=== PATIENT | male | born 1960 | race Caucasian/White ===

== ENCOUNTER 2023-07-23 19:43 | Inpatient (IN) | payer OTHER, SELFPAY ==
[2023-07-23] VITALS (10 sets, daily range): BP systolic 69–107; BP diastolic 53–75; BMI 25.2
--- NOTE | 2023-07-23 15:17 | ED.GENMED ---
History of Present Illness
<Agustín Tadeo PA-C - Last Filed: 07/23/23 18:03>
General
Chief Complaint: Abdominal Symptoms
Source: patient
Time Seen by Provider: 07/23/23 15:03
Travel History
Have you had any contact with someone who has COVID-19?: No
Do you have any symptoms of coronavirus? Fever > 100 degrees, chills, cough, shortness of breath, sore throat, loss of taste or smell, muscle aches, or headache?: No
History of Present Illness
History of Present Illness:
63-year-old male presents via EMS from a hotel where they found him on the floor. Complains of abdominal pain in the midportion of the abdomen. He does admit to regular alcohol use. He was found covered in urine and feces. He denies chest pain
or shortness of breath. No recent fever. He has a prior history of laparoscopic hernia repair. No prior history of cholecystectomy. Pain does not radiate to his back. Its constant. No other complaints at this time
Phy Exam
<Agustín Tadeo PA-C - Last Filed: 07/23/23 18:03>
Physical Exam
Physical Exam:
General: Unkempt appearing male no acute respiratory distress
HEENT: Normocephalic atraumatic
Heart: Regular rate and rhythm
Lungs: Clear to auscultation bilaterally no wheezing
Abdomen:Somewhat firm tender to the epigastric region slightly distended normal bowel sounds no guarding
Extremities: No cyanosis or edema
Skin is warm no rash
Course
<Agustín Tadeo PA-C - Last Filed: 07/23/23 18:03>
Orders/Labs/Results
Orders:
Orders
07/23/23 15:02
IV Insert/Care/Rem.- Treatment PRN
Straight cath- Treatment ONCE
Urinalysis Reflex To Culture Urgent
Date Specimen was Collected: 07/23/23
Time Specimen was Collected: 15:02
07/23/23 15:12
EKG [Electrocardiogram (*1)] Urgent
Reason for Study: Abdominal Pain
07/23/23 15:13
EKG- Treatment ONCE
07/23/23 15:15
CT Abd/pelvis Wo Iv Cont Urgent
Reason For Exam: abdominal pain
Ondansetron Injectable [Zofran] 4 mg IV NOW STA
07/23/23 15:16
Alcohol Urgent
B-Hydroxybutyrate Urgent
Comment: ADD ON
CPK [Creatine Phosphokinase] Urgent
Complete Blood Count/With Diff Urgent
Comprehensive Metabolic Panel Urgent
GGTP Urgent
Comment: ADD ON
Lipase Urgent
Magnesium Urgent
Comment: ADD ON
Troponin I Urgent
07/23/23 15:25
0.9% Sodium Chloride 1000 ml [Nss] 1,000 ml IV BOLUS
07/23/23 15:37
Lactic Acid Q4H
Comment: CANCEL 2nd LACTIC ACID IF 1st LACTIC ACID IS LESS THAN 2
Blood Culture Q30M
NETTE Source: Blood/Venous
Specimen Description:
Blood Culture Q30M
NETTE Source: Blood/Venous
Specimen Description:
07/23/23 16:17
Ondansetron Injectable [Zofran] 4 mg IV NOW STA
Pantoprazole 80 mg/100 ml Nss [Protonix] 80 mg in 100 ml IV NOW
Pantoprazole [Protonix IV] 80 mg IV NOW STA
07/23/23 16:39
Type+Screen Urgent
07/23/23 18:13
Admit/Transfer Patient As Directed
Co-Sign Provider:
Level of Care: Inpatient admission
Assign to:: Telemetry
Physician / Group: hosp
Diagnosis: Acute pancreatitis/hypotension
Reason for Telemetry: Medication for Arrhythmia
Date to Stop Telemetry: 07/25/23
Time to Stop Telemetry: 11:00
Reason for Hospitalization: Acute pancreatitis/MEAGAN
Expected length of stay greater than two midnights?: Yes
ELOS- Estimated Length of Stay in days: 2
I certify the patient meets the requirements for IP care: Yes
07/23/23 18:15
Code Status As Directed
Resuscitation Status: Full Code
07/23/23 18:23
Case Management Consult Once
Case Management Consult: Other
Comment: Substance abuse counseling
DIETARY CONSULT Routine
Reason for Consult: Nutrition support, possible refeeding guidelines
Prothrombin Time Urgent
Urine Drug Abuse Screen Routine
Date Specimen was Collected: 07/23/23
Time Specimen was Collected: 18:26
0.9% Sodium Chloride [Nss (Preservative Free)] See Protocol IV PRN PRN
FOLic ACID [Folvite] 1 mg 0.9% Sodium Chloride 50 ml [Nss] 50 ml IV DAILYPRN
Lorazepam [Ativan] 1 mg IV Q1HPRN PRN
Lorazepam [Ativan] 1 mg PO Q2HPRN PRN
Lorazepam [Ativan] 2 mg IV Q1HPRN PRN
MSAS SCORE As Directed
MSAS Score 0-4: Repeat MSAS every 2 hours until 0-4 for three consecutive assessments, then every 4 hours x 48
hours.
MSAS Score 5-7: For MILD withdrawl symptoms. Repeat MSAS and RASS every 2 hours
MSAS Score 8-11: For MODERATE withdrawal symptoms. Repeat MSAS and RASS every 1 hour. Consider ICU or IMU
level of care.
MSAS Score > 11: For SEVERE withdrawal symptoms. Repeat MSAS and RASS every 1 hour. Notify provider, consider
ICU level of care.
MSAS Additional Instructions: If no improvement or no decrease in score from severe to moderate within 12
hours, consult psychiatry
MSAS Notify Provider: Notify provider if patient requires more than 10 mg of Lorazepam in eight hour period.
07/23/23 18:29
Add On- LAB Urgent
Tests Added?: alcohol,b-hydroxybutyrate,GGTP,magnesium
07/23/23 18:34
Potassium Chloride [KCl] 20 meq 0.9% Sodium Chloride 150 ml [Nss] 150 ml IV NOW
Sodium Bicarbonate 50 meq IV NOW STA
07/23/23 19:30
Lactic Acid Q4H
Comment: CANCEL 2nd LACTIC ACID IF 1st LACTIC ACID IS LESS THAN 2
07/23/23 20:00
Thiamine Injection 200 mg IV Q12
07/24/23 08:00
FOLic ACID [Folvite] 1 mg PO DAILY
07/25/23 11:00
DC Protocol for Telemetry ONCE
07/26/23 20:00
Thiamine HCl [Vitamin B1] 100 mg PO BID
Abnormal Lab Results
07/23/23 07/23/23
15:16 15:37
RBC 3.98 L 10^6/uL
(4.70-6.10)
Hct 36.9 L %
(39.0-52.0)
MCH 34.2 H pg
(27.0-31.0)
Abs Immat Gran (auto) 0.4 H 10^3/uL
(0-0.05)
Absolute Monos (auto) 0.9 H 10^3/uL
(0.1-0.6)
Immature Gran % 4.7 H %
(0-0.5)
Lymphocytes % 16.1 L %
(20.5-51.1)
Monocytes % 11.7 H %
(1.7-9.3)
Sodium 128 L mmol/L
(135-145)
Potassium 3.4 L mmol/L
(3.5-5.1)
Carbon Dioxide 16 L mmol/L
(22-30)
BUN 39 H mg/dl
(9-20)
Creatinine 2.0 H mg/dL
(0.7-1.3)
Glucose 135 H mg/dl
(70-99)
Lactic Acid 4.9 H* mmol/L
(0.7-2.0)
Calcium 8.2 L mg/dl
(8.4-10.2)
Total Bilirubin 1.6 H mg/dl
(0.2-1.3)
AST 69 H U/L
(17-59)
ALT 54 H U/L
(0-50)
Troponin I 0.096 H* ng/ml
Total Protein 5.9 L g/dl
(6.3-8.2)
Lipase 2845 H* U/L
(23-300)
07/23/23 15:16
07/23/23 15:16
Vital Signs
Initial and Last Documented VS:
Initial Vital Signs
Temp Resp Pulse Ox
97.4 F 19 94
07/23/23 15:04 07/23/23 15:04 07/23/23 15:04
Last Documented Vital Signs
Temp Pulse Resp BP Pulse Ox
97.4 F 97 12 107/65 94
07/23/23 15:04 07/23/23 18:08 07/23/23 16:45 07/23/23 16:02 07/23/23 15:04
<Maryana Williamson MD - Last Filed: 07/23/23 19:14>
Orders/Labs/Results
Orders:
Orders
07/23/23 15:02
IV Insert/Care/Rem.- Treatment PRN
Straight cath- Treatment ONCE
Urinalysis Reflex To Culture Urgent
Date Specimen was Collected: 07/23/23
Time Specimen was Collected: 15:02
07/23/23 15:12
EKG [Electrocardiogram (*1)] Urgent
Reason for Study: Abdominal Pain
07/23/23 15:13
EKG- Treatment ONCE
07/23/23 15:15
CT Abd/pelvis Wo Iv Cont Urgent
Reason For Exam: abdominal pain
Ondansetron Injectable [Zofran] 4 mg IV NOW STA
07/23/23 15:16
Alcohol Urgent
B-Hydroxybutyrate Urgent
Comment: ADD ON
CPK [Creatine Phosphokinase] Urgent
Complete Blood Count/With Diff Urgent
Comprehensive Metabolic Panel Urgent
GGTP Urgent
Comment: ADD ON
Lipase Urgent
Magnesium Urgent
Comment: ADD ON
Troponin I Urgent
07/23/23 15:25
0.9% Sodium Chloride 1000 ml [Nss] 1,000 ml IV BOLUS
07/23/23 15:37
Lactic Acid Q4H
Comment: CANCEL 2nd LACTIC ACID IF 1st LACTIC ACID IS LESS THAN 2
Blood Culture Q30M
NETTE Source: Blood/Venous
Specimen Description:
Blood Culture Q30M
NETTE Source: Blood/Venous
Specimen Description:
07/23/23 16:17
Ondansetron Injectable [Zofran] 4 mg IV NOW STA
Pantoprazole 80 mg/100 ml Nss [Protonix] 80 mg in 100 ml IV NOW
Pantoprazole [Protonix IV] 80 mg IV NOW STA
07/23/23 16:39
Type+Screen Urgent
07/23/23 18:13
Admit/Transfer Patient As Directed
Co-Sign Provider:
Level of Care: Inpatient admission
Assign to:: Telemetry
Physician / Group: hosp
Diagnosis: Acute pancreatitis/hypotension
Reason for Telemetry: Medication for Arrhythmia
Date to Stop Telemetry: 07/25/23
Time to Stop Telemetry: 11:00
Reason for Hospitalization: Acute pancreatitis/MEAGAN
Expected length of stay greater than two midnights?: Yes
ELOS- Estimated Length of Stay in days: 2
I certify the patient meets the requirements for IP care: Yes
07/23/23 18:15
Code Status As Directed
Resuscitation Status: Full Code
07/23/23 18:23
Case Management Consult Once
Case Management Consult: Other
Comment: Substance abuse counseling
DIETARY CONSULT Routine
Reason for Consult: Nutrition support, possible refeeding guidelines
Prothrombin Time Urgent
Urine Drug Abuse Screen Routine
Date Specimen was Collected: 07/23/23
Time Specimen was Collected: 18:26
0.9% Sodium Chloride [Nss (Preservative Free)] See Protocol IV PRN PRN
FOLic ACID [Folvite] 1 mg 0.9% Sodium Chloride 50 ml [Nss] 50 ml IV DAILYPRN
Lorazepam [Ativan] 1 mg IV Q1HPRN PRN
Lorazepam [Ativan] 1 mg PO Q2HPRN PRN
Lorazepam [Ativan] 2 mg IV Q1HPRN PRN
MSAS SCORE As Directed
MSAS Score 0-4: Repeat MSAS every 2 hours until 0-4 for three consecutive assessments, then every 4 hours x 48
hours.
MSAS Score 5-7: For MILD withdrawl symptoms. Repeat MSAS and RASS every 2 hours
MSAS Score 8-11: For MODERATE withdrawal symptoms. Repeat MSAS and RASS every 1 hour. Consider ICU or IMU
level of care.
MSAS Score > 11: For SEVERE withdrawal symptoms. Repeat MSAS and RASS every 1 hour. Notify provider, consider
ICU level of care.
MSAS Additional Instructions: If no improvement or no decrease in score from severe to moderate within 12
hours, consult psychiatry
MSAS Notify Provider: Notify provider if patient requires more than 10 mg of Lorazepam in eight hour period.
07/23/23 18:29
Add On- LAB Urgent
Tests Added?: alcohol,b-hydroxybutyrate,GGTP,magnesium
07/23/23 18:34
Potassium Chloride [KCl] 20 meq 0.9% Sodium Chloride 150 ml [Nss] 150 ml IV NOW
Sodium Bicarbonate 50 meq IV NOW STA
07/23/23 19:30
Lactic Acid Q4H
Comment: CANCEL 2nd LACTIC ACID IF 1st LACTIC ACID IS LESS THAN 2
07/23/23 20:00
Thiamine Injection 200 mg IV Q12
07/24/23 08:00
FOLic ACID [Folvite] 1 mg PO DAILY
07/25/23 11:00
DC Protocol for Telemetry ONCE
07/26/23 20:00
Thiamine HCl [Vitamin B1] 100 mg PO BID
Abnormal Lab Results
07/23/23 07/23/23
15:16 15:37
RBC 3.98 L 10^6/uL
(4.70-6.10)
Hct 36.9 L %
(39.0-52.0)
MCH 34.2 H pg
(27.0-31.0)
Abs Immat Gran (auto) 0.4 H 10^3/uL
(0-0.05)
Absolute Monos (auto) 0.9 H 10^3/uL
(0.1-0.6)
Immature Gran % 4.7 H %
(0-0.5)
Lymphocytes % 16.1 L %
(20.5-51.1)
Monocytes % 11.7 H %
(1.7-9.3)
Sodium 128 L mmol/L
(135-145)
Potassium 3.4 L mmol/L
(3.5-5.1)
Carbon Dioxide 16 L mmol/L
(22-30)
BUN 39 H mg/dl
(9-20)
Creatinine 2.0 H mg/dL
(0.7-1.3)
Glucose 135 H mg/dl
(70-99)
Lactic Acid 4.9 H* mmol/L
(0.7-2.0)
Calcium 8.2 L mg/dl
(8.4-10.2)
Total Bilirubin 1.6 H mg/dl
(0.2-1.3)
AST 69 H U/L
(17-59)
ALT 54 H U/L
(0-50)
Troponin I 0.096 H* ng/ml
Total Protein 5.9 L g/dl
(6.3-8.2)
Lipase 2845 H* U/L
(23-300)
07/23/23 15:16
07/23/23 15:16
Vital Signs
Initial and Last Documented VS:
Initial Vital Signs
Temp Resp Pulse Ox
97.4 F 19 94
07/23/23 15:04 07/23/23 15:04 07/23/23 15:04
Last Documented Vital Signs
Temp Pulse Resp BP Pulse Ox
97.4 F 97 12 107/65 94
07/23/23 15:04 07/23/23 18:08 07/23/23 16:45 07/23/23 16:02 07/23/23 15:04
<Agustín Tadeo PA-C - Last Filed: 07/23/23 18:03>
MDM/Problems Addressed
Differential Diagnosis Includes:
Abdominal pain with recent vomiting. Consider viral illness vs pancreatitis is cholecystitis or obstruction.
Check labs, lipase, trop. CT pending given tenderness.
<Agustín Tadeo PA-C - Last Filed: 07/23/23 18:03>
*Critical Care Note
Total Time (30-74mins, 75-104mins- exclusive of procedures): Not Applicable
<Agustín Tadeo PA-C - Last Filed: 07/23/23 18:03>
Update Note
Update Note:
Patient hypotensive initially was aggressively hydrated with IV fluids. This was helpful for his blood pressure. Blood pressure now systolic 107. He remained alert throughout his stay. Abdomen was tender on exam which prompted CT. Unable to
perform IV contrast secondary to kidney functions today. CT scan was overall negative. Lipase was 2845 and lactic acid was 4.9. Will admit for acute pancreatitis
ED Attending Note
<Agustín Tadeo PA-C - Last Filed: 07/23/23 18:03>
-
Portions of this chart may have been created with voice recognition software.� Occasional wrong word or��sound alike� substitutions may have occurred due to the inherent limitations of voice recognition software.
<Maryana Williamson MD - Last Filed: 07/23/23 19:14>
ED Attending Note
Patient seen and examined by attending physician: Yes
ED Attending Note:
63-year-old male who states that he got into an argument with his girlfriend and was 'kicked out' of his house, went to a hotel and has been drinking heavily up until approximately 3 days ago. At that time, he developed multiple episodes of
intractable nonbloody vomiting and diarrhea. His girlfriend brought him his medications today and upon taking the medicine he had A bottle of Gatorade and thought he was getting better, but this was followed by repeated episodes of nonbloody
vomiting. He describes intense fatigue and difficulty making it to the toilet because of this fatigue. He reportedly was found in a hotel laying down covered in urine and feces. He states that after having the Gatorade he developed right upper
quadrant/epigastric abdominal discomfort which continues. This is without radiation, exacerbating, relieving factors. He denies associated back pain, chest pain, dyspnea. On exam, IV fluids are running, hypotension has improved remarkably,
patient awake and alert. He has diffuse abdominal tenderness without rebound or guarding, mild distention noted. Heart regular rate and rhythm, lungs CTA. No stigmata of bleeding noted, conjunctiva pink. Workup in progress, adding PPI, further
antiemetics while awaiting further results. Although troponin indiscriminately elevated, ECG not consistent with acute cardiac event and patient denies chest pain etc.
Discharge Plan
Departure
Patient Disposition: Admit
Date of Disposition: 07/23/23
Time of Disposition: 18:02
Admit to: IMU
Presentation/result/management discussed w/ accepting MD/DO: Hospitalist
Discharge Problem:
Acute pancreatitis
Prescriptions:
No Action
lisinopril 10 mg Tablet
10 mg PO DAILY
tizanidine 4 mg Capsule
4 mg PO Q8H PRN (Reason: muscle spasms)
omeprazole 40 mg capsule,delayed release(DR/EC)
40 mg PO DAILY
Referrals:
Jose Antonio Ann DO [Family Provider] -
Interventions
Interventions:
*Risk Screen - Suicide Last Done: 07/23/23 15:56
*General Assessment Last Done: 07/23/23 15:04
*Neglect/Abuse Screening Last Done: 07/23/23 15:04
ED- Fall Risk Assessment Last Done: 07/23/23 15:11
MR-Rnqdve-Krnmzlejce Assessment Last Done: 07/23/23 15:11
Discharge Date and Time
Print Language: VENEZUELAN
[2023-07-23] MEDS: ZOFRAN 4 MG IV ×2 (15:20→16:59)
[2023-07-23] MEDS: NSS 1000 IV ×2 (15:35→22:39)
[2023-07-23 15:48] LABS: ALT (SGPT) 54 U/L (0-50); AST (SGOT) 69 U/L (17-59); Albumin 3.7 g/dl (3.5-5.0); Alkaline Phosphatase 62 U/L (38-126); Blood Urea Nitrogen 39 mg/dl (9-20); Calcium 8.2 mg/dl (8.4-10.2); Carbon Dioxide 16 mmol/L (22-30); Chloride 99 mmol/L (98-107); Creatine Phosphokinase 84 U/L (55-170); Estimated Creatinine Clearance 43 ml/min; Glucose 135 mg/dl (70-99); Potassium 3.4 mmol/L (3.5-5.1); Sodium 128 mmol/L (135-145); Total Bilirubin 1.6 mg/dl (0.2-1.3); Total Protein 5.9 g/dl (6.3-8.2); eGFR 37.04
[2023-07-23 16:01] LABS: % Basophils 0.9 % (0-2); % Eosinophils 0.3 % (0-6); % Immature Granulocytes 4.7 % (0-0.5); % Lymphocytes 16.1 % (20.5-51.1); % Monocytes 11.7 % (1.7-9.3); % Neutrophils 66.3 % (42.2-75.2); Absolute Basophils 0.1 10^3/uL (0-0.2); Absolute Immature Granulocytes 0.4 10^3/uL (0-0.05); Absolute Lymphocytes 1.2 10^3/uL (1.2-3.4); Absolute Monocytes 0.9 10^3/uL (0.1-0.6); Absolute Neutrophils 5.1 10^3/uL (1.4-6.5); Hematocrit 36.9 % (39.0-52.0); Hemoglobin 13.6 g/dL (13.0-18.0); Mean Corp Hgb Conc. 36.9 g/dL (33.0-37.0); Mean Corpuscular Hgb 34.2 pg (27.0-31.0); Mean Corpuscular Volume 92.7 fL (80.0-94.0); Mean Platelet Volume 9.8 fL (7.4-10.4); Nucleated Red Blood Cells % 0.9 % (-); Platelet Count 179 10^3/uL (130-400); Red Blood Cell Count 3.98 10^6/uL (4.70-6.10); Red Cell Dist. Width 11.7 % (11.5-14.5); White Blood Cell Count 7.7 10^3/uL (4.8-10.8)
[2023-07-23 16:03] LABS: Troponin I 0.096 ng/ml
[2023-07-23] MEDS: PROTONIX 100 IV (16:29)
[2023-07-23] MEDS: PROTONIX IV 80 MG IV (16:29)
[2023-07-23 16:33] LABS: Lactic Acid 4.9 mmol/L (0.7-2.0)
[2023-07-23 16:33] LABS: Lipase 2845 U/L (23-300)
--- NOTE | 2023-07-23 18:24 | HPS.HSE ---
Family Physician
-
Family Physician: Jose Antonio Ann
Chief Complaint
-
Home by paramedics on the floor complaining of abdominal pain covered with feces and urine
History of Present Illness
63-year-old male presents via EMS from a hotel where they found him on the floor. Complains of abdominal pain in the midportion of the abdomen. He does admit to regular alcohol use. He was found covered in urine and feces. He denies chest pain
or shortness of breath. No recent fever. He has a prior history of laparoscopic hernia repair. No prior history of cholecystectomy. Pain does not radiate to his back. Its constant. No other complaints at this time
He relates he just started drinking again this past week and when asked quantities he states 'I drink a lot of alcohol' had some drinking for some time until this week. Her last drink was 2 days ago however but has been having some ongoing
abdominal pain but became much worse today.
Phy Exam
Medical History
Past Medical History
Past Medical History: Reports GERD (May have been diagnosed with gastroesophageal reflux and esophagitis by EGD sometime ago.) and Renal Failure
Past Surgical History: Reports None
Social History
Tobacco: Smoker (Half pack a day)
Alcohol: Chronic Alcoholic
Drug: None
Personal: Single
Living: Alone
Family History
Family History: Not pertinent
Allergies / Home Medications
Allergies reflects when Allergies were last updated in [employer].
Home Medications with original date entered in [employer]
Allergy/Medication List:
Allergies
Allergy/AdvReac Type Severity Reaction Status Date / Time
No Known Allergies Allergy Verified 08/04/22 10:37
Home Medications
lisinopril 10 mg tablet 10 mg PO DAILY 08/01/22
tizanidine 4 mg capsule 4 mg PO Q8H PRN muscle spasms 08/01/22
omeprazole 40 mg capsule,delayed release 40 mg PO DAILY 07/23/23
Review of Systems
-
History Source: Patient
Constitutional: Reports See HPI
EENT: Reports See HPI
Respiratory: Reports See HPI
Cardiac: Reports See HPI
Abdomen/GI: Reports Abdominal Pain, Nausea, Vomiting and Pain
: Reports See HPI
Physical Exam
Vital Signs
Vital Signs
Temp Pulse Resp BP Pulse Ox
97.4 F 97 12 107/65 94
07/23/23 15:04 07/23/23 18:08 07/23/23 16:45 07/23/23 16:02 07/23/23 15:04
Physical Exam
General: No Apparent Distress
HEENT: NormoCephalic
Respiratory: Clear
Cardiac: S1/S2 and Regular Rhythm
GI: Soft and Tender (Midepigastric does not radiate to back)
Psych: Calm
Laboratory Results
-
07/23/23 15:16
07/23/23 15:16
Laboratory Results
Lactic Acid 4.9 mmol/L (0.7-2.0) H* 07/23/23 15:37
Total Bilirubin 1.6 mg/dl (0.2-1.3) H 07/23/23 15:16
AST 69 U/L (17-59) H 07/23/23 15:16
ALT 54 U/L (0-50) H 07/23/23 15:16
Alkaline Phosphatase 62 U/L (38-126) 07/23/23 15:16
Troponin I 0.096 ng/ml H* 07/23/23 15:16
Lipase 2845 U/L (23-300) H* 07/23/23 15:16
Data Reviewed
-
Critical Care Time (in minutes): 56
CT Scan: Image Personally Visualized and interpreted and Report Reviewed by me (No evidence of pancreatitis on CT imaging)
Lab Data: Labs Reviewed by me (Creatinine 2.0/lipase 2500/lactic acid 4.9/sodium 128 potassium 3.4 BUN 39/bicarb 16 no gap)
Impression/Plan
-
IMPRESSION:
63-year-old male presents via EMS from a hotel where they found him on the floor. Complains of abdominal pain in the midportion of the abdomen. He does admit to regular alcohol use. He was found covered in urine and feces. He denies chest pain
or shortness of breath. No recent fever. He has a prior history of laparoscopic hernia repair. No prior history of cholecystectomy. Pain does not radiate to his back. Its constant. No other complaints at this time
He relates he just started drinking again this past week and when asked quantities he states 'I drink a lot of alcohol' had some drinking for some time until this week. Her last drink was 2 days ago however but has been having some ongoing
abdominal pain but became much worse today.
Denies any prior history of pancreatitis or similar presentation does admit to being a chronic alcoholic and binge drinker of late
Acute presentation of hypotension
-Responded to IV fluids in the ED
Acute pancreatitis
-Binge drinker in the setting of alcohol use disorder
-CT of the abdomen unremarkable for acute pancreatitis however lipase 2845
-Keep n.p.o.
-Alcoholic hepatitis with LFT elevation
-Analgesia with hydromorphone/avoid morphine in setting of MEAGAN
-MSAS protocol/if history is accurate should not have significant withdrawal presentation given last drink
-Follow on telemetry
Acute kidney injury
-Presumed in relation to low volume state
-Vigorous IV fluids
-Bicarb infusion tonight
-Nongap acidosis
-If no significant response with IV fluids overnight will consult nephrology
-Hold lisinopril
Acute troponin elevation
-Presumed to be nonischemic origin
Lactic acidosis
-Continue vigorous IV fluids and trend
DVT prophylaxis with heparin and SCDs
Full CODE STATUS
PLAN:
[2023-07-23 19:06] LABS: Alcohol None Detected; GGTP 64 U/L (15-73); Magnesium 1.8 mg/dl (1.6-2.3)
[2023-07-23 19:16] LABS: B-Hydroxybutyrate 0.37 mmol/L (0.02-0.27)
[2023-07-23] MEDS: SODIUM BICARBONATE 50 MEQ IV (19:54)
[2023-07-23] MEDS: KCL 160 MEQ IV (19:54)
[2023-07-23] MEDS: HEPARIN SC (22:02)
[2023-07-23] MEDS: THIAMINE INJECTION 200 MG IV (22:05)
[2023-07-23 22:52] LABS: INR 1.17; PT 14.7 Sec (11.4-14.6)
[2023-07-24] VITALS (20 sets, daily range): BP systolic 79–138; BP diastolic 46–90; BMI 25.8
[2023-07-24 02:30] LABS: Urine Albumin Trace (Neg - Trace); Urine Bilirubin Negative (Negative); Urine Character Clear (Clear); Urine Color Yellow; Urine Glucose Negative (Negative); Urine Ketone 1+ (Negative); Urine Leukocyte Negative (Negative); Urine Nitrite Negative (Negative); Urine Occult Blood 1+ (Negative); Urine Urobilinogen Negative (Neg - 1+)
[2023-07-24 03:31] LABS: Urine Amorphous Seen; Urine Squamous Cell >30 /LPF (Few)
[2023-07-24 03:32] LABS: Urine Mucus Moderate
[2023-07-24 03:33] LABS: Urine Bacteria Many (Negative)
[2023-07-24 03:35] LABS: Amphetamines Negative (Negative); Barbiturates Negative (Negative); Benzodiazepines Negative (Negative); Buprenorphine Negative (Negative); Cocaine Negative (Negative); Marijuana Negative (Negative); Methadone Negative (Negative); Methamphetamines Negative (Negative); Opiates Negative (Negative); Phencyclidine Negative (Negative); Tricyclic Antidepressants Negative (Negative)
[2023-07-24] MEDS: LR 500 IV (05:16)
[2023-07-24] MEDS: NSS 1000 IV ×3 (05:48→18:20)
[2023-07-24 07:40] LABS: Hematocrit 32.3 % (39.0-52.0); Hemoglobin 11.7 g/dL (13.0-18.0); Mean Corp Hgb Conc. 36.2 g/dL (33.0-37.0); Mean Corpuscular Volume 93.9 fL (80.0-94.0); Mean Platelet Volume 9.7 fL (7.4-10.4); Platelet Count 137 10^3/uL (130-400); Red Blood Cell Count 3.44 10^6/uL (4.70-6.10); Red Cell Dist. Width 11.8 % (11.5-14.5)
[2023-07-24 07:49] LABS: ALT (SGPT) 60 U/L (0-50); AST (SGOT) 75 U/L (17-59); Albumin 2.8 g/dl (3.5-5.0); Alkaline Phosphatase 59 U/L (38-126); Blood Urea Nitrogen 37 mg/dl (9-20); Calcium 7.5 mg/dl (8.4-10.2); Carbon Dioxide 21 mmol/L (22-30); Chloride 106 mmol/L (98-107); Estimated Creatinine Clearance 51 ml/min; Glucose 87 mg/dl (70-99); Potassium 3.3 mmol/L (3.5-5.1); Sodium 129 mmol/L (135-145); Total Bilirubin 1.4 mg/dl (0.2-1.3); Total Protein 4.9 g/dl (6.3-8.2); eGFR 45.02
[2023-07-24 08:14] LABS: Lipase 2705 U/L (23-300)
[2023-07-24] MEDS: HEPARIN 5000 UNITS SC ×2 (10:13→21:47)
[2023-07-24] MEDS: KCL 160 MEQ IV (10:13)
[2023-07-24] MEDS: THIAMINE INJECTION 200 MG IV ×2 (10:14→21:59)
[2023-07-24] MEDS: PROTONIX IV 40 MG IV (10:14)
[2023-07-24] MEDS: NSS (PRESERVATIVE FREE) 10 ML IV (10:14)
--- NOTE | 2023-07-24 11:57 | W.PN.HOSP.TC ---
Today's Communication/Plan
-
Will place on clear liquids today
Continue vigorous IV fluids
Trend lipase
Monitor for withdrawal but appears none coming
Will try to minimize narcotic analgesia at this point
Assessment / Plan
Assessment / Plan
63-year-old male presents via EMS from a hotel where they found him on the floor. Complains of abdominal pain in the midportion of the abdomen. He does admit to regular alcohol use. He was found covered in urine and feces. He denies chest pain
or shortness of breath. No recent fever. He has a prior history of laparoscopic hernia repair. No prior history of cholecystectomy. Pain does not radiate to his back. Its constant. No other complaints at this time
He relates he just started drinking again this past week and when asked quantities he states 'I drink a lot of alcohol' had some drinking for some time until this week. Her last drink was 2 days ago however but has been having some ongoing
abdominal pain but became much worse today.
Denies any prior history of pancreatitis or similar presentation does admit to being a chronic alcoholic and binge drinker of late
Acute presentation of hypotension
-Responded to IV fluids in the ED
-Will continue to hold lisinopril as BP still soft
-Continue IV fluids
Acute pancreatitis
-Binge drinker in the setting of alcohol use disorder
-CT of the abdomen unremarkable for acute pancreatitis however lipase 2845>> 2700
-Keep n.p.o.>> clear liquids
Alcoholic hepatitis with LFT elevation
-Analgesia with hydromorphone/avoid morphine in setting of MEAGAN
-MSAS protocol/if history is accurate should not have significant withdrawal presentation given last drink
-Follow on telemetry
Acute kidney injury
-Presumed in relation to low volume state
-Vigorous IV fluids to be continued
-Bicarb infusion can be discontinued
-Nongap acidosis
-If no significant response with IV fluids overnight will consult nephrology
-Hold lisinopril
Inappropriate prednisone use
-Uses as needed not prescribed by physician gets from friends
-Admits to as much is taking 40 mg sometimes daily sometimes will take lower dosages last intake was over 2 weeks ago however
Acute troponin elevation
-Presumed to be nonischemic origin
Lactic acidosis/resolved
-Continue vigorous IV fluids and trend
DVT prophylaxis with heparin and SCDs
Full CODE STATUS
Anticipated Discharge: 24 - 48 hours
Subjective/Interval History
-
Date of Service: July 24, 2023
Patient is feeling significant better as far as level abdominal pain no emesis no diarrheal stooling still low BP
Objective Data
-
Labs:
Laboratory Results
07/24/23
06:54
WBC 4.0 L
Hgb 11.7 L
Hct 32.3 L
Plt Count 137 D
Sodium 129 L
Potassium 3.3 L
Chloride 106
Carbon Dioxide 21 L
BUN 37 H
Creatinine 1.7 H
Glucose 87
Calcium 7.5 L
Total Bilirubin 1.4 H
AST 75 H
ALT 60 H
Alkaline Phosphatase 59
Vital Signs:
Vital Signs
Temp Pulse Resp BP Pulse Ox
99.0 F 81 16 104/70 98
07/23/23 23:55 07/24/23 11:00 07/24/23 11:00 07/24/23 11:00 07/24/23 09:00
I&O
07/23/23 07/24/23 07/25/23
06:59 06:59 06:59
Output Total 400 / 400
Balance -400 / -400
Review of Systems
-
History Source: Patient
All other systems: Not reviewed unless documented
Constitutional: Reports No Symptoms
EENT: Reports No Symptoms Reported
Respiratory: Reports No Symptoms
Cardiac: Reports No Symptoms
Abdomen/GI: Reports Abdominal Pain (Greatly improved)
Physical Exam
-
General: Well Developed
HEENT: Normocephalic
Respiratory: Clear to Auscultation
Cardiac: Regular Rhythm
GI: Soft and Nontender
Genito-urinary: Clear Urine
Skin: Warm
Neuro: Awake
Psych: Intact Judgement/Insight and Other (No withdrawal symptoms or signs)
Data Reviewed
-
Total Time Spent with Patient (in minutes): 56
Labs: Labs Reviewed by me (Sodium up to 129 potassium down to 3.3 bicarb up to 21 lactic acid now normalized from 5.9)
--- NOTE | 2023-07-24 12:09 | CM ---
CM met with patient in room. Patient confirmed that he recently has an argument with his girlfriend and he left the home they were sharing. He stated that he then stayed at a hotel. Patient stated that he has been sober for 5 years, but recently
relapsed. He stated that he will 'never drink again'. CM offered [facility]. Patient is refusing meet with [facility].
Patient has been in 4 rehabs for alcohol misuse and he feels that he would not benefit from it at this time.
CM discussed housing options as patient is currently homeless. CM stated that we can assist with a hotel room through [facility] or provide transportation assistance to a residential. Patient stated that he is going to call a friend to see if they can assist
with housing. Patient further stated that he has no financial resources.
CM encouraged patient to pursue housing options for discharge.
Patient does not have a history of VN or SNF.
[2023-07-24] MEDS: FOLVITE 50.2000000000000028 MG IV (13:45)
[2023-07-24] MEDS: FOLVITE PO (13:45)
[2023-07-24] MEDS: NSS IV (13:49)
[2023-07-24 14:26] LABS: Hepatitis C Antibody Negative (Negative)
[2023-07-24] MEDS: ZOFRAN 4 MG IV (17:11)
[2023-07-25] MEDS: NSS 1000 IV ×5 (00:46→22:21)
[2023-07-25 03:43] VITALS: BP 106/60
[2023-07-25 07:25] VITALS: BP 110/60
[2023-07-25] MEDS: HEPARIN 5000 UNITS SC ×2 (08:34→20:14)
[2023-07-25] MEDS: NSS (PRESERVATIVE FREE) 10 ML IV (08:35)
[2023-07-25] MEDS: FOLVITE 1 MG PO (08:35)
[2023-07-25] MEDS: PROTONIX IV 40 MG IV (08:38)
[2023-07-25] MEDS: THIAMINE INJECTION 200 MG IV ×2 (08:38→20:15)
[2023-07-25 09:08] LABS: ALT (SGPT) 77 U/L (0-50); AST (SGOT) 83 U/L (17-59); Albumin 2.6 g/dl (3.5-5.0); Alkaline Phosphatase 57 U/L (38-126); Blood Urea Nitrogen 17 mg/dl (9-20); Calcium 7.6 mg/dl (8.4-10.2); Carbon Dioxide 19 mmol/L (22-30); Chloride 108 mmol/L (98-107); Estimated Creatinine Clearance 79 ml/min; Glucose 87 mg/dl (70-99); Magnesium 1.3 mg/dl (1.6-2.3); Phosphorus 1.4 mg/dl (2.5-4.5); Sodium 135 mmol/L (135-145); Total Bilirubin 0.8 mg/dl (0.2-1.3); Total Protein 4.5 g/dl (6.3-8.2); eGFR > 60.00
--- NOTE | 2023-07-25 10:27 | PN.CDI ---
CDI
- -
CDI:
Physician Documentation Request
Admit Date: 07/23/23 19:43
Dear Doctor Kristin,
Please review the following and provide your response in the progress notes.
Clinical Indicators:
- 4/2 PN 'Acute troponin elevation...Presumed to be nonischemic origin'
- Abnormal troponin level 0.096
Please clarify the following regarding the documented elevated troponins:
Non-ischemic myocardial injury
Clinically insignificant abnormal lab value
Other
Use of terms such as suspected, likely, concern for, or probable (associated with a specific diagnosis that is being evaluated, monitored, or treated as if it exists) are acceptable and can be coded in the inpatient setting, when documented at the
time of discharge.
Thank you,
Stan Reis RN
CDI Specialist
Please use your independent medical judgment in providing your response.
--- NOTE | 2023-07-25 10:35 | PN.CDI ---
CDI
- -
CDI:
Physician Documentation Request
Admit Date: 07/23/23 19:43
Dear Doctor Kristin,
Please review the following and provide your response in the progress notes.
Clinical Indicators:
- 20 meq IV Kcl given x2
Laboratory Tests
07/23/23 07/24/23 07/25/23
15:16 06:54 06:29
Potassium 3.4 L 3.3 L 3.0 L
Please provide a diagnosis for the above lab values that were monitored and treatment rendered:
Hypokalemia
Clinically insignificant abnormal lab value
Other
Use of terms such as suspected, likely, concern for, or probable (associated with a specific diagnosis that is being evaluated, monitored, or treated as if it exists) are acceptable and can be coded in the inpatient setting, when documented at the
time of discharge.
Thank you,
Stan Reis RN
CDI Specialist
Please use your independent medical judgment in providing your response.
[2023-07-25 11:05] LABS: Lipase 2064 U/L (23-300)
[2023-07-25] MEDS: KCL 270 MEQ IV (11:05)
[2023-07-25] MEDS: MAGNESIUM SULFATE 50 IV (11:06)
[2023-07-25 11:10] VITALS: BP 119/76
--- NOTE | 2023-07-25 11:31 | W.PN.HOSP.TC ---
Addendum entered and electronically signed by Angus Foster MD 07/25/23 12:35:
Acute hypokalemia
Nonischemic myocardial injury
Original Note:
Today's Communication/Plan
-
Reduce IV fluids to 150 cc/h
Replete potassium, magnesium, and phosphorus
Continue to monitor lipase
No significant withdrawal signs or symptoms seen
Assessment / Plan
Assessment / Plan
63-year-old male presents via EMS from a hotel where they found him on the floor. Complains of abdominal pain in the midportion of the abdomen. He does admit to regular alcohol use. He was found covered in urine and feces. He denies chest pain
or shortness of breath. No recent fever. He has a prior history of laparoscopic hernia repair. No prior history of cholecystectomy. Pain does not radiate to his back. Its constant. No other complaints at this time
He relates he just started drinking again this past week and when asked quantities he states 'I drink a lot of alcohol' had some drinking for some time until this week. Her last drink was 2 days ago however but has been having some ongoing
abdominal pain but became much worse today.
Denies any prior history of pancreatitis or similar presentation does admit to being a chronic alcoholic and binge drinker of late
Acute presentation of hypotension
-Responded to IV fluids in the ED
-Will continue to hold lisinopril as BP still soft
-Continue IV fluids
Acute pancreatitis
-Binge drinker in the setting of alcohol use disorder
-CT of the abdomen unremarkable for acute pancreatitis however lipase 2845>> 2700
-Keep n.p.o.>> clear liquids>> fulls
Alcoholic hepatitis with LFT elevation
-Analgesia with hydromorphone/avoid morphine in setting of MEAGAN
-MSAS protocol/if history is accurate should not have significant withdrawal presentation given last drink
-Follow on telemetry
Refeeding syndrome
-Magnesium potassium and phosphorus all depressed
-Will replete in the next 2 to 3 days
-Continue to monitor
Acute kidney injury/resolved
-Presumed in relation to low volume state
-Vigorous IV fluids to be continued
-Bicarb infusion can be discontinued
-Nongap acidosis
-If no significant response with IV fluids overnight will consult nephrology
-Hold lisinopril
Inappropriate prednisone use
-Uses as needed not prescribed by physician gets from friends
-Admits to as much is taking 40 mg sometimes daily sometimes will take lower dosages last intake was over 2 weeks ago however
Acute troponin elevation
-Presumed to be nonischemic origin
Lactic acidosis/resolved
-Continue vigorous IV fluids and trend
DVT prophylaxis with heparin and SCDs
Full CODE STATUS
Anticipated Discharge: Within 24 hours
Subjective/Interval History
-
Date of Service: July 25, 2023
Feels weak and shaky tolerating clear liquids some abdominal pain still but less
Objective Data
-
Labs:
Laboratory Results
07/25/23
06:29
Sodium 135
Potassium 3.0 L
Chloride 108 H
Carbon Dioxide 19 L
BUN 17
Creatinine 1.1
Glucose 87
Calcium 7.6 L
Total Bilirubin 0.8
AST 83 H
ALT 77 H
Alkaline Phosphatase 57
Vital Signs:
Vital Signs
Temp Pulse Resp BP Pulse Ox
98.3 F 80 20 110/60 97
07/25/23 07:25 07/25/23 07:25 07/25/23 07:25 07/25/23 07:25 07/25/23 07:25
I&O
07/24/23 07/25/23 07/26/23
06:59 06:59 06:59
Intake Total 1480 / 1480
Output Total 400 / 400 2225 / 2225
Balance -400 / -400 -745 / -745
Review of Systems
-
History Source: Patient
EENT: Reports No Symptoms Reported
Respiratory: Reports No Symptoms
Cardiac: Reports No Symptoms
Abdomen/GI: Reports Abdominal Pain
Genitourinary: Reports No Symptoms
Physical Exam
-
General: Well Developed
HEENT: Normocephalic
Respiratory: Clear to Auscultation
GI: Soft, Nondistended and Tender (Epigastric)
Musculoskeletal: No Edema
Skin: Warm
Neuro: Awake and Alert
Data Reviewed
-
Total Time Spent with Patient (in minutes): 56
Medical Tests (Nuc Med, Echo etc): Report Reviewed by me
Labs: Labs Reviewed by me (Magnesium and phosphorus depressed potassium depressed to 3.0)
--- NOTE | 2023-07-25 11:58 | CM ---
Addendum entered by Yulissa Sinclair 07/25/23 14:14:
CM spoke with Gordon from [facility], patient agreeable to inpatient rehab, Gordon working on getting patient into [facility] or [facility]. CM will fax requested clinicals to [facility] [phone].
Original Note:
Patient seen bedside, patient expressed interest in getting into an inpatient rehab, patient agreeable to meet with [facility]. CM spoke with Gordon from [facility], he will be at the hospital later and will meet with patient. Gordon will update CM after
meeting with patient. CM will continue to follow for discharge planning needs.
Plan; [facility] assisting in inpatient rehab.
[2023-07-25] MEDS: NEUTRA-PHOS POWDER PACKET 250 MG PO ×3 (15:00→22:22)
[2023-07-25 15:25] VITALS: BP 127/89
[2023-07-25 19:17] VITALS: BP 146/83
[2023-07-25 23:56] VITALS: BP 114/90
[2023-07-26 03:25] VITALS: BP 132/78
[2023-07-26] MEDS: NSS 1000 IV ×3 (04:22→18:28)
[2023-07-26 07:30] VITALS: BP 113/83
--- NOTE | 2023-07-26 08:10 | PN.CDI ---
CDI
- -
CDI:
Physician Documentation Request
Admit Date: 07/23/23 19:43
Dear Doctor Kristin,
Please review the following and provide your response in the progress notes.
Clinical Indicators:
The diagnosis of avascular necrosis was included in the signed 07/22 Abd/Pelvis CT.
- 07/22 Abd/Pelvis CT 'Findings in the left femoral head compatible with avascular necrosis, a new finding since examination of August 26, 2022'
- 07/24 PN 'Inappropriate prednisone use...not prescribed by physician'
- 'Admits to as much is taking 40 mg sometimes daily sometimes'
Please indicate in your progress notes if you are in agreement that the above diagnosis is valid for this patient:
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
____ - Avascular necrosis of the left femoral head is not a valid diagnosis for this patient
____ - Avascular necrosis of the left femoral head is not yet confirmed but remains a suspected condition
____ - Other
Use of terms such as suspected, likely, concern for, or probable are acceptable for a diagnosis that is being evaluated, monitored or treated as if it exists and can be coded in the inpatient setting, when documented at the time of discharge.
Thank you,
Stan Reis RN
CDI Specialist
Please use your independent medical judgment in providing your response.
[2023-07-26 08:29] LABS: ALT (SGPT) 86 U/L (0-50); AST (SGOT) 87 U/L (17-59); Albumin 2.7 g/dl (3.5-5.0); Alkaline Phosphatase 59 U/L (38-126); Blood Urea Nitrogen 6 mg/dl (9-20); Calcium 6.8 mg/dl (8.4-10.2); Carbon Dioxide 23 mmol/L (22-30); Chloride 110 mmol/L (98-107); Estimated Creatinine Clearance 96 ml/min; Glucose 96 mg/dl (70-99); Lipase 1282 U/L (23-300); Magnesium 0.9 mg/dl (1.6-2.3); Phosphorus 2.1 mg/dl (2.5-4.5); Potassium 2.9 mmol/L (3.5-5.1); Sodium 136 mmol/L (135-145); Total Bilirubin 0.7 mg/dl (0.2-1.3); Total Protein 4.8 g/dl (6.3-8.2); eGFR > 60.00
[2023-07-26] MEDS: NEUTRA-PHOS POWDER PACKET 250 MG PO ×4 (09:12→20:01)
[2023-07-26] MEDS: FOLVITE 1 MG PO (09:13)
[2023-07-26] MEDS: HEPARIN 5000 UNITS SC ×2 (09:13→20:01)
[2023-07-26] MEDS: ZOFRAN 4 MG IV (09:14)
[2023-07-26] MEDS: THIAMINE INJECTION 200 MG IV (09:14)
[2023-07-26] MEDS: PROTONIX IV 40 MG IV (09:14)
[2023-07-26] MEDS: NSS (PRESERVATIVE FREE) 10 ML IV (09:14)
--- NOTE | 2023-07-26 09:57 | W.PN.HOSP.TC ---
Addendum entered and electronically signed by Angus Foster MD 07/26/23 13:14:
Follow-up the CT scan of the abdomen and pelvis did incidentally note avascular necrosis involving the left femoral head possibly explaining by his chronic admitted inappropriate steroid usage that is nonoperative scribed by providers will entertain
the possibility if he is symptomatic obtaining orthopedic consultation prior to his discharge here.
Original Note:
Today's Communication/Plan
-
Continue replete in the setting of refeeding syndrome
Magnesium, calcium, potassium and phosphorus
Assessment / Plan
Assessment / Plan
63-year-old male presents via EMS from a hotel where they found him on the floor. Complains of abdominal pain in the midportion of the abdomen. He does admit to regular alcohol use. He was found covered in urine and feces. He denies chest pain
or shortness of breath. No recent fever. He has a prior history of laparoscopic hernia repair. No prior history of cholecystectomy. Pain does not radiate to his back. Its constant. No other complaints at this time
He relates he just started drinking again this past week and when asked quantities he states 'I drink a lot of alcohol' had some drinking for some time until this week. Her last drink was 2 days ago however but has been having some ongoing
abdominal pain but became much worse today.
Denies any prior history of pancreatitis or similar presentation does admit to being a chronic alcoholic and binge drinker of late
Acute presentation of hypotension
-Responded to IV fluids in the ED
-Will continue to hold lisinopril as BP still soft
-Continue IV fluids
Acute pancreatitis
-Binge drinker in the setting of alcohol use disorder
-CT of the abdomen unremarkable for acute pancreatitis however lipase 2845>> 2700
-Keep n.p.o.>> clear liquids>> fulls
Alcoholic hepatitis with LFT elevation
-Analgesia with hydromorphone/avoid morphine in setting of MEAGAN
-MSAS protocol/if history is accurate should not have significant withdrawal presentation given last drink
-Follow on telemetry
Refeeding syndrome
-Magnesium potassium and phosphorus all depressed/continue need for replacement as repeat magnesium this morning is only 0.9
-Serum calcium 6.8 but ionized calcium is 7.84
-Phosphorus improving to 2.1 will continue Neutra-Phos
-Continue to monitor
Acute kidney injury/resolved
-Presumed in relation to low volume state
-Vigorous IV fluids to be continued
-Bicarb infusion can be discontinued
-Nongap acidosis
-If no significant response with IV fluids overnight will consult nephrology
-Hold lisinopril
Inappropriate prednisone use
-Uses as needed not prescribed by physician gets from friends
-Admits to as much is taking 40 mg sometimes daily sometimes will take lower dosages last intake was over 2 weeks ago however
Acute troponin elevation
-Presumed to be nonischemic origin
Lactic acidosis/resolved
-Continue vigorous IV fluids and trend
DVT prophylaxis with heparin and SCDs
Full CODE STATUS
Anticipated Discharge: 24 - 48 hours
Subjective/Interval History
-
Date of Service: July 26, 2023
He seemed to tolerate the full liquid diet but had some difficulty with some diarrhea denies any increasing abdominal pain no nausea or vomiting remains weak
Objective Data
-
Labs:
Laboratory Results
07/26/23
07:12
Sodium 136
Potassium 2.9 L
Chloride 110 H
Carbon Dioxide 23
BUN 6 L
Creatinine 0.9
Glucose 96
Calcium 6.8 L*
Total Bilirubin 0.7
AST 87 H
ALT 86 H
Alkaline Phosphatase 59
Vital Signs:
Vital Signs
Temp Pulse Resp BP Pulse Ox
97.9 F 92 16 113/83 99
07/26/23 07:30 07/26/23 07:30 07/26/23 07:30 07/26/23 07:30 07/26/23 07:30
I&O
07/25/23 07/26/23 07/27/23
06:59 06:59 06:59
Intake Total 1480 / 1480 2860 / 2860
Output Total 2225 / 2225 3035 / 3035
Balance -745 / -745 -175 / -175
Review of Systems
-
History Source: Patient
Constitutional: Reports Fatigue and Weakness
Abdomen/GI: Reports Abdominal Pain
Physical Exam
-
General: Well Developed
HEENT: Normocephalic and PERRLA
Cardiac: Regular Rhythm
GI: Soft, Nondistended and Tender (Mildly)
Genito-urinary: No Costovertebral Tender
Musculoskeletal: No Clubbing
Skin: Warm
Neuro: Awake, Alert and Oriented
Psych: Calm
Data Reviewed
-
Total Time Spent with Patient (in minutes): 45
Labs: Labs Reviewed by me (Lipase down to 1200 albumin 2.7, calcium is 6.9,)
[2023-07-26] MEDS: MAGNESIUM SULFATE 100 IV (10:19)
[2023-07-26] MEDS: CALCIUM GLUCONATE 100 IV (10:23)
[2023-07-26] MEDS: KCL 40 MEQ PO (10:37)
[2023-07-26 11:18] VITALS: BMI 25.8
[2023-07-26 12:43] VITALS: BP 151/100
[2023-07-26 15:29] VITALS: BP 139/95
--- NOTE | 2023-07-26 15:38 | CM ---
Patient seen bedside with Gordon from [facility], working on finding patient inpatient facility. [facility]. CM will continue to follow for discharge planning needs.
Plan; inpatient facility pending accepting rehab.
[2023-07-26 19:07] VITALS: BP 125/83
[2023-07-26] MEDS: VITAMIN B1 100 MG PO (20:01)
[2023-07-26 23:03] VITALS: BP 143/94
[2023-07-27] VITALS (7 sets, daily range): BP systolic 126–146; BP diastolic 81–97
[2023-07-27] MEDS: NSS 1000 IV ×4 (00:59→20:21)
[2023-07-27] MEDS: ZOFRAN 4 MG IV ×2 (09:35→18:06)
[2023-07-27] MEDS: HEPARIN 5000 UNITS SC ×2 (09:37→20:21)
[2023-07-27] MEDS: NSS (PRESERVATIVE FREE) 10 ML IV (09:38)
[2023-07-27] MEDS: PROTONIX IV 40 MG IV (09:39)
[2023-07-27] MEDS: VITAMIN B1 100 MG PO ×2 (09:39→20:22)
[2023-07-27] MEDS: FOLVITE 1 MG PO (09:40)
[2023-07-27] MEDS: NEUTRA-PHOS POWDER PACKET 250 MG PO ×4 (09:41→20:22)
--- NOTE | 2023-07-27 10:28 | W.PN.HOSP.TC ---
Today's Communication/Plan
-
revert to clear liquids given his symptoms still awaiting today's labs
Assessment / Plan
Assessment / Plan
63-year-old male presents via EMS from a hotel where they found him on the floor. Complains of abdominal pain in the midportion of the abdomen. He does admit to regular alcohol use. He was found covered in urine and feces. He denies chest pain
or shortness of breath. No recent fever. He has a prior history of laparoscopic hernia repair. No prior history of cholecystectomy. Pain does not radiate to his back. Its constant. No other complaints at this time
He relates he just started drinking again this past week and when asked quantities he states 'I drink a lot of alcohol' had some drinking for some time until this week. Her last drink was 2 days ago however but has been having some ongoing
abdominal pain but became much worse today.
Denies any prior history of pancreatitis or similar presentation does admit to being a chronic alcoholic and binge drinker of late
Acute presentation of hypotension
-Responded to IV fluids in the ED
-Will continue to hold lisinopril as BP still soft
-Continue IV fluids
Acute pancreatitis
-Binge drinker in the setting of alcohol use disorder
-CT of the abdomen unremarkable for acute pancreatitis however lipase 2845>> 2700
-Keep n.p.o.>> clear liqui
Alcoholic hepatitis with LFT elevation
-Analgesia with hydromorphone/avoid morphine in setting of MEAGAN
-MSAS protocol/if history is accurate should not have significant withdrawal presentation given last drink
-Follow on telemetry
Refeeding syndrome
-Magnesium potassium and phosphorus all depressed/continue need for replacement as repeat magnesium this morning is only 0.9
-Serum calcium 6.8 but ionized calcium is 7.84
-Phosphorus improving to 2.1 will continue Neutra-Phos
-Continue to monitor
Acute kidney injury/resolved
-Presumed in relation to low volume state
-Vigorous IV fluids to be continued
-Bicarb infusion can be discontinued
-Nongap acidosis
-If no significant response with IV fluids overnight will consult nephrology
-Hold lisinopril
Inappropriate prednisone use
-Uses as needed not prescribed by physician gets from friends
-Admits to as much is taking 40 mg sometimes daily sometimes will take lower dosages last intake was over 2 weeks ago however
Acute troponin elevation
-Presumed to be nonischemic origin
Lactic acidosis/resolved
-Continue vigorous IV fluids and trend
DVT prophylaxis with heparin and SCDs
Full CODE STATUS
Anticipated Discharge: Within 24 hours
Subjective/Interval History
-
Date of Service: July 27, 2023
Still some epigastric tenderness and upset/explained to him that the treatment for refeeding syndrome is severely nothing by mouth until electrolyte correction he was agreeable
Objective Data
-
Labs:
Laboratory Results
07/27/23
10:00
WBC Pending
Hgb Pending
Hct Pending
Plt Count Pending
Sodium Pending
Potassium Pending
Chloride Pending
Carbon Dioxide Pending
BUN Pending
Creatinine Pending
Glucose Pending
Calcium Pending
Total Bilirubin Pending
AST Pending
ALT Pending
Alkaline Phosphatase Pending
Vital Signs:
Vital Signs
Temp Pulse Resp BP Pulse Ox
98.2 F 88 18 134/87 97
07/27/23 09:11 07/27/23 09:11 07/27/23 09:11 07/27/23 09:11 07/27/23 09:11
I&O
07/26/23 07/27/23 07/28/23
06:59 06:59 06:59
Intake Total 2860 / 2860 3430 / 3430
Output Total 3035 / 3035 5085 / 5085
Balance -175 / -175 -1655 / -1655
Review of Systems
-
Respiratory: Reports No Symptoms
Cardiac: Reports No Symptoms
Abdomen/GI: Reports Abdominal Pain and Nausea
Physical Exam
-
General: Well Developed
HEENT: Normocephalic
Respiratory: Clear to Auscultation
Cardiac: Regular Rhythm
GI: Soft and Nontender
Musculoskeletal: No Clubbing
Neuro: Awake, Alert, Oriented and AO x 3
Data Reviewed
-
Total Time Spent with Patient (in minutes): 45
Labs: Labs Reviewed by me (Today's labs still pending)
[2023-07-27 11:19] LABS: ALT (SGPT) 84 U/L (0-50); AST (SGOT) 70 U/L (17-59); Alkaline Phosphatase 69 U/L (38-126); Blood Urea Nitrogen 5 mg/dl (9-20); Calcium 7.1 mg/dl (8.4-10.2); Carbon Dioxide 24 mmol/L (22-30); Chloride 107 mmol/L (98-107); Estimated Creatinine Clearance 96 ml/min; Glucose 125 mg/dl (70-99); Lipase 1405 U/L (23-300); Magnesium 1.2 mg/dl (1.6-2.3); Phosphorus 1.5 mg/dl (2.5-4.5); Potassium 3.2 mmol/L (3.5-5.1); Sodium 134 mmol/L (135-145); Total Bilirubin 0.6 mg/dl (0.2-1.3); Total Protein 5.2 g/dl (6.3-8.2); eGFR > 60.00
--- NOTE | 2023-07-27 12:13 | CM ---
Per [facility] counselor, Darvin, patient was accepted @ [facility] and if stable they will accept tomorrow.
Attending notified and reported that patient won't stable for discharge; patient reverted to clear liquids; being treated for refeeding syndrome; can have nothing by mouth until electrolyte correction
Plan: [facility] and Case Management will continue to follow
[2023-07-27] MEDS: MAGNESIUM SULFATE 100 IV (12:36)
[2023-07-27] MEDS: KCL 30 MEQ PO (12:57)
[2023-07-27 14:04] LABS: Hematocrit 34.4 % (39.0-52.0); Hemoglobin 12.3 g/dL (13.0-18.0); Mean Corp Hgb Conc. 35.8 g/dL (33.0-37.0); Mean Corpuscular Hgb 34.3 pg (27.0-31.0); Mean Corpuscular Volume 95.8 fL (80.0-94.0); Mean Platelet Volume 9.7 fL (7.4-10.4); Platelet Count 164 10^3/uL (130-400); Red Blood Cell Count 3.59 10^6/uL (4.70-6.10); Red Cell Dist. Width 11.9 % (11.5-14.5); White Blood Cell Count 3.2 10^3/uL (4.8-10.8)
[2023-07-27] MEDS: FLUSH (NSS) IV (18:06)
[2023-07-28] MEDS: NSS 1000 IV ×3 (02:33→15:59)
[2023-07-28 03:55] VITALS: BP 131/80
[2023-07-28 07:29] LABS: Blood Urea Nitrogen 2 mg/dl (9-20); Carbon Dioxide 25 mmol/L (22-30); Chloride 109 mmol/L (98-107); Estimated Creatinine Clearance 96 ml/min; Glucose 97 mg/dl (70-99); Lipase 658 U/L (23-300); Magnesium 1.3 mg/dl (1.6-2.3); Phosphorus 2.4 mg/dl (2.5-4.5); Potassium 3.5 mmol/L (3.5-5.1); Sodium 134 mmol/L (135-145); eGFR > 60.00
[2023-07-28 07:45] VITALS: BP 134/75
[2023-07-28] MEDS: HEPARIN 5000 UNITS SC ×2 (08:58→19:54)
[2023-07-28] MEDS: ZOFRAN 4 MG IV ×2 (08:58→20:03)
[2023-07-28] MEDS: FOLVITE 1 MG PO (08:58)
[2023-07-28] MEDS: NSS (PRESERVATIVE FREE) 10 ML IV (08:59)
[2023-07-28] MEDS: VITAMIN B1 100 MG PO ×2 (08:59→19:54)
[2023-07-28] MEDS: PROTONIX IV 40 MG IV (08:59)
[2023-07-28] MEDS: NEUTRA-PHOS POWDER PACKET 250 MG PO ×4 (09:00→19:54)
[2023-07-28] MEDS: MAGNESIUM SULFATE 50 IV (09:00)
--- NOTE | 2023-07-28 09:16 | W.PN.HOSP.TC ---
Today's Communication/Plan
-
Needs at least another 24 hours of electrolyte repletion and advancing diet prior to consideration for rehab placement
Magnesium rider today
Potassium supplementation today
Continue Neutra-Phos
Advance to full liquids today
Assessment / Plan
Assessment / Plan
63-year-old male presents via EMS from a hotel where they found him on the floor. Complains of abdominal pain in the midportion of the abdomen. He does admit to regular alcohol use. He was found covered in urine and feces. He denies chest pain
or shortness of breath. No recent fever. He has a prior history of laparoscopic hernia repair. No prior history of cholecystectomy. Pain does not radiate to his back. Its constant. No other complaints at this time
He relates he just started drinking again this past week and when asked quantities he states 'I drink a lot of alcohol' had some drinking for some time until this week. Her last drink was 2 days ago however but has been having some ongoing
abdominal pain but became much worse today.
Denies any prior history of pancreatitis or similar presentation does admit to being a chronic alcoholic and binge drinker of late
Acute presentation of hypotension
-Responded to IV fluids in the ED
-Will continue to hold lisinopril as BP still soft
-Continue IV fluids
Acute pancreatitis
-Binge drinker in the setting of alcohol use disorder
-CT of the abdomen unremarkable for acute pancreatitis however lipase 2845>> 2700>>658
-Keep n.p.o.>> clear liqui>> full liquids today
-[facility] had bed assignment and a alcohol rehab facility but not quite ready medically
Alcoholic hepatitis with LFT elevation
-Analgesia with hydromorphone/avoid morphine in setting of MEAGAN
-MSAS protocol/if history is accurate should not have significant withdrawal presentation given last drink
-Follow on telemetry
Refeeding syndrome
-Magnesium potassium and phosphorus all depressed/continue need for replacement as repeat magnesium this morning is only 0.9
-Serum calcium 6.8 but ionized calcium is 7.84
-Phosphorus improving to 2.4 will continue Neutra-Phos
-Continue to monitor
Acute kidney injury/resolved
-Presumed in relation to low volume state
-Vigorous IV fluids to be continued
-Bicarb infusion can be discontinued
-Nongap acidosis
-If no significant response with IV fluids overnight will consult nephrology
-Hold lisinopril
Inappropriate prednisone use
-Uses as needed not prescribed by physician gets from friends
-Admits to as much is taking 40 mg sometimes daily sometimes will take lower dosages last intake was over 2 weeks ago however
-Avascular necrosis of left hip femoral head was noted incidentally on abdominal and pelvic CT imaging/admits to no pain in the left hip although he has pain in other locations
-Advised that the his indiscriminate prednisone usage could have led to the avascular necrosis explained the concept of that diagnosis and should he develop any left hip pain or gait instability to seek attention with an orthopedist
Acute troponin elevation
-Presumed to be nonischemic origin
Lactic acidosis/resolved
-Continue vigorous IV fluids and trend
DVT prophylaxis with heparin and SCDs
Full CODE STATUS
Anticipated Discharge: Within 24 hours
Subjective/Interval History
-
Date of Service: July 28, 2023
Continued improvement less abdominal pain tolerated clear liquids overnight
Objective Data
-
Labs:
Laboratory Results
07/28/23
06:25
Sodium 134 L
Potassium 3.5
Chloride 109 H
Carbon Dioxide 25
BUN 2 L
Creatinine 0.9
Glucose 97
Calcium 7.0 L
Vital Signs:
Vital Signs
Temp Pulse Resp BP Pulse Ox
98.5 F 72 18 134/75 95
07/28/23 07:45 07/28/23 07:45 07/28/23 07:45 07/28/23 07:45 07/28/23 07:45
I&O
07/27/23 07/28/23 07/29/23
06:59 06:59 06:59
Intake Total 3430 / 3430 3060 / 3060
Output Total 5085 / 5085 4575 / 4575
Balance -1655 / -1655 -1515 / -1515
Review of Systems
-
History Source: Patient
All other systems: Reviewed and negative
Constitutional: Reports No Symptoms
EENT: Reports No Symptoms Reported
Respiratory: Reports No Symptoms
Cardiac: Reports No Symptoms
Abdomen/GI: Reports Abdominal Pain (Improved up as mild now.)
Musculoskeletal: Reports No Symptoms
Physical Exam
-
General: Well Developed
HEENT: Normocephalic
Respiratory: Clear to Auscultation
Cardiac: Regular Rhythm
GI: Soft, Nontender and Nondistended
Neuro: Awake
Psych: Calm and Intact Judgement/Insight
Data Reviewed
-
Total Time Spent with Patient (in minutes): 45
Labs: Labs Reviewed by me (Magnesium still depressed at 1.3 but trending up phosphorus 2.4 potassium 3.5 AST stable lipase 658)
[2023-07-28] MEDS: KCL 20 MEQ PO (10:46)
[2023-07-28 11:17] VITALS: BP 145/86
[2023-07-28 15:33] VITALS: BP 141/80
[2023-07-28 19:55] VITALS: BP 126/84
[2023-07-28 23:55] VITALS: BP 141/91
[2023-07-29 03:30] VITALS: BP 147/96
[2023-07-29 07:25] VITALS: BP 124/81
[2023-07-29 08:07] LABS: Blood Urea Nitrogen 2 mg/dl (9-20); Calcium 7.4 mg/dl (8.4-10.2); Chloride 107 mmol/L (98-107); Estimated Creatinine Clearance 96 ml/min; Glucose 100 mg/dl (70-99); Magnesium 1.2 mg/dl (1.6-2.3); Potassium 3.6 mmol/L (3.5-5.1); Sodium 135 mmol/L (135-145); eGFR > 60.00
[2023-07-29 08:25] LABS: Carbon Dioxide 25 mmol/L (22-30)
[2023-07-29] MEDS: NEUTRA-PHOS POWDER PACKET 250 MG PO ×4 (09:44→20:15)
[2023-07-29] MEDS: FOLVITE 1 MG PO (09:44)
[2023-07-29] MEDS: VITAMIN B1 100 MG PO ×2 (09:44→20:15)
[2023-07-29] MEDS: PROTONIX IV 40 MG IV (09:45)
[2023-07-29] MEDS: HEPARIN 5000 UNITS SC ×2 (09:45→20:15)
[2023-07-29] MEDS: NSS (PRESERVATIVE FREE) 10 ML IV (09:45)
[2023-07-29] MEDS: MAGNESIUM SULFATE 50 IV (09:57)
--- NOTE | 2023-07-29 10:01 | W.PN.HOSP.TC ---
Today's Communication/Plan
-
Continue repletion of electrolytes and treatment of his refeeding syndrome I would not feed him low-fat diet until at least tomorrow
Unfortunately lost her to bed with [facility]/patient is basically homeless and will need to go from here to a rehab facility to treat his alcoholism
Placed on oral magnesium oxide today along with IV infusion again
Recheck in a.m.
Assessment / Plan
Assessment / Plan
63-year-old male presents via EMS from a hotel where they found him on the floor. Complains of abdominal pain in the midportion of the abdomen. He does admit to regular alcohol use. He was found covered in urine and feces. He denies chest pain
or shortness of breath. No recent fever. He has a prior history of laparoscopic hernia repair. No prior history of cholecystectomy. Pain does not radiate to his back. Its constant. No other complaints at this time
He relates he just started drinking again this past week and when asked quantities he states 'I drink a lot of alcohol' had some drinking for some time until this week. Her last drink was 2 days ago however but has been having some ongoing
abdominal pain but became much worse today.
Denies any prior history of pancreatitis or similar presentation does admit to being a chronic alcoholic and binge drinker of late
Acute presentation of hypotension
-Responded to IV fluids in the ED
-Will continue to hold lisinopril as BP still soft
-Continue IV fluids
Acute pancreatitis
-Binge drinker in the setting of alcohol use disorder
-CT of the abdomen unremarkable for acute pancreatitis however lipase 2845>> 2700>>658
-Keep n.p.o.>> clear liqui>> full liquids today
-[facility] had bed assignment and a alcohol rehab facility but not quite ready medically
Alcoholic hepatitis with LFT elevation
-Analgesia with hydromorphone/avoid morphine in setting of MEAGAN
-MSAS protocol/if history is accurate should not have significant withdrawal presentation given last drink
-Follow on telemetry
Refeeding syndrome
-Magnesium potassium and phosphorus all depressed/continue need for replacement as repeat magnesium this morning is only 1.2
-Serum calcium 6.8 but ionized calcium is 7.84
-Phosphorus improving to 2.4 will continue Neutra-Phos
-Continue to monitor
Acute kidney injury/resolved
-Presumed in relation to low volume state
-Vigorous IV fluids to be continued
-Bicarb infusion can be discontinued
-Nongap acidosis
-If no significant response with IV fluids overnight will consult nephrology
-Hold lisinopril
Inappropriate prednisone use
-Uses as needed not prescribed by physician gets from friends
-Admits to as much is taking 40 mg sometimes daily sometimes will take lower dosages last intake was over 2 weeks ago however
-Avascular necrosis of left hip femoral head was noted incidentally on abdominal and pelvic CT imaging/admits to no pain in the left hip although he has pain in other locations
-Advised that the his indiscriminate prednisone usage could have led to the avascular necrosis explained the concept of that diagnosis and should he develop any left hip pain or gait instability to seek attention with an orthopedist
Acute troponin elevation
-Presumed to be nonischemic origin
Lactic acidosis/resolved
-Continue vigorous IV fluids and trend
DVT prophylaxis with heparin and SCDs
Full CODE STATUS
Anticipated Discharge: 24 - 48 hours
Subjective/Interval History
-
Date of Service: July 29, 2023
Seemed to tolerate the full liquids thankful for being referred to rehab facility eventually basically is homeless and will need to go straight from here to there
Objective Data
-
Labs:
Laboratory Results
07/29/23
06:57
Sodium 135
Potassium 3.6
Chloride 107
Carbon Dioxide 25
BUN 2 L
Creatinine 0.9
Glucose 100 H
Calcium 7.4 L
Vital Signs:
Vital Signs
Temp Pulse Resp BP Pulse Ox
98.2 F 86 18 124/81 98
07/29/23 07:25 07/29/23 07:25 07/29/23 07:25 07/29/23 07:25 07/29/23 07:25
I&O
07/28/23 07/29/23 07/30/23
06:59 06:59 06:59
Intake Total 3060 / 3060 1620 / 1620
Output Total 4575 / 4575 4075 / 4075
Balance -1515 / -1515 -2455 / -2455
Review of Systems
-
History Source: Patient
Constitutional: Reports No Symptoms
EENT: Reports No Symptoms Reported
Abdomen/GI: Reports Abdominal Pain
Physical Exam
-
General: Well Developed
HEENT: Normocephalic
Respiratory: Clear to Auscultation
Cardiac: Regular Rhythm
GI: Soft and Nontender
Genito-urinary: No Costovertebral Tender
Musculoskeletal: No Clubbing
Neuro: Awake, Alert and Oriented
Psych: Calm
Data Reviewed
-
Labs: Labs Reviewed by me (Magnesium remains depressed calcium 7.4 magnesium 1.2 potassium 3.6)
[2023-07-29 11:27] VITALS: BP 113/76
--- NOTE | 2023-07-29 13:06 | VATNOTE ---
During routine assessment of pt's IV site, swelling noted to L arm above his IV site. Pt stated that he also noticed swelling. Denies pain. Pt c/o pain when IV is flushed. Spoke with PCN, IV discontinued at this time as telemetry discontinued and no
other needs. Heat applied to arm and arm elevated on a pillow. PCN will advise if IV needs to be restarted.
[2023-07-29 15:20] VITALS: BP 153/97
[2023-07-29] MEDS: ZOFRAN 4 MG IV (17:46)
[2023-07-29] MEDS: MAGNESIUM OXIDE 500 MG PO (20:15)
[2023-07-29] MEDS: TYLENOL 650 MG PO (20:43)
[2023-07-29 21:06] LABS: COVID-19 Antigen Negative (Negative)
[2023-07-29 23:50] VITALS: BP 135/83
[2023-07-30 05:59] LABS: Blood Urea Nitrogen 3 mg/dl (9-20); Carbon Dioxide 24 mmol/L (22-30); Chloride 108 mmol/L (98-107); Estimated Creatinine Clearance 87 ml/min; Glucose 99 mg/dl (70-99); Magnesium 1.3 mg/dl (1.6-2.3); Phosphorus 3.4 mg/dl (2.5-4.5); Potassium 3.9 mmol/L (3.5-5.1); Sodium 133 mmol/L (135-145); eGFR > 60.00
[2023-07-30 07:42] VITALS: BP 132/77
--- NOTE | 2023-07-30 08:21 | W.PN.HOSP.TC ---
Today's Communication/Plan
-
Replete electrolytes. Discharge planning in progress.
Assessment / Plan
Assessment / Plan
Physical exam:
General: Acute and chronically ill
HEENT: Normocephalic, Atraumatic and Moist Mucous Membranes
Respiratory: Clear to Auscultation; Negative Wheezes, Rales or Rhonchi
Cardiac: Regular Rhythm and S1/S2
GI: Soft, Nontender and Nondistended
Musculoskeletal: No Clubbing, No Cyanosis and No Edema
Neuro: Awake, Alert and Oriented
Psych: Calm
A/P:
Acute presentation of hypotension
-Responded to IV fluids in the ED
-Will resume ZIGGY inhibitor with holding parameters
-Stop IV fluids
Presumed acute pancreatitis
-Binge drinker in the setting of alcohol use disorder
-CT of the abdomen unremarkable for acute pancreatitis however lipase 2845>> 2700>>658
-Keep n.p.o.>> clear liqui>> full liquids-->1200 demetrio diet today
-[facility] had bed assignment and a alcohol rehab facility but not quite ready medically-->possible over the next 24-48 hrs
Alcoholic hepatitis with LFT elevation
-Analgesia with hydromorphone/avoid morphine in setting of MEAGAN
-MSAS protocol/if history is accurate should not have significant withdrawal presentation given last drink
-Follow on telemetry
Refeeding syndrome
-Magnesium potassium and phosphorus all depressed/continue need for replacement as repeat magnesium with IV and oral, this morning is only 1.3
-Serum calcium 6.8 but ionized calcium is 7.84 prior.
-Phosphorus improving to 3.4 will continue Neutra-Phos until tomorrow
-Recheck electrolytes in a.m.
-Continue to monitor
Hyponatremia
Mild and continue to monitor
Acute kidney injury/resolved
-Presumed in relation to low volume state
- Stop IV fluids
-Bicarb infusion can be discontinued
-Resume lisinopril
Inappropriate prednisone use
-Uses as needed not prescribed by physician gets from friends
-Admits to as much is taking 40 mg sometimes daily sometimes will take lower dosages last intake was over 2 weeks ago however
-Avascular necrosis of left hip femoral head was noted incidentally on abdominal and pelvic CT imaging/admits to no pain in the left hip although he has pain in other locations
-Advised that the his indiscriminate prednisone usage could have led to the avascular necrosis explained the concept of that diagnosis and should he develop any left hip pain or gait instability to seek attention with an orthopedist
Acute troponin elevation
-Presumed to be nonischemic origin
Lactic acidosis/resolved
-Stop IV fluids
DVT prophylaxis with heparin and SCDs
Full CODE STATUS
Anticipated Discharge: 24 - 48 hours
Subjective/Interval History
-
Date of Service: July 30, 2023
Patient denies any abdominal pain nausea or vomiting. Generalized weakness present.
Objective Data
-
Labs:
Laboratory Results
07/30/23
05:10
Sodium 133 L
Potassium 3.9
Chloride 108 H
Carbon Dioxide 24
BUN 3 L
Creatinine 1.0
Glucose 99
Calcium 8.0 L
Vital Signs:
Vital Signs
Temp Pulse Resp BP Pulse Ox
98.7 F 74 18 132/77 97
07/30/23 07:42 07/30/23 07:42 07/30/23 07:42 07/30/23 07:42 07/30/23 07:42
I&O
07/29/23 07/30/23 07/31/23
06:59 06:59 06:59
Intake Total 1620 / 1620 480 / 480
Output Total 4075 / 4075 1800 / 1800
Balance -2455 / -2455 -1320 / -1320
[2023-07-30] MEDS: HEPARIN 5000 UNITS SC ×2 (09:07→20:15)
[2023-07-30] MEDS: FOLVITE 1 MG PO (09:07)
[2023-07-30] MEDS: MAGNESIUM OXIDE 500 MG PO ×2 (09:07→20:15)
[2023-07-30] MEDS: VITAMIN B1 100 MG PO ×2 (09:07→20:16)
[2023-07-30] MEDS: NSS (PRESERVATIVE FREE) 10 ML IV (09:08)
[2023-07-30] MEDS: PROTONIX IV 40 MG IV (09:08)
[2023-07-30] MEDS: MAGNESIUM SULFATE 50 IV (09:09)
[2023-07-30] MEDS: NEUTRA-PHOS POWDER PACKET 250 MG PO (09:11)
--- NOTE | 2023-07-30 09:29 | VATNOTE ---
Reported left arm infiltrate resolved, no swelling noted.
--- NOTE | 2023-07-30 11:01 | CM ---
CM spoke with Gordon from [facility], [facility] can accept patient today. Per Hospitalist, patient not clear for discharge today, possibly tomorrow. Gordon updated, spoke with [facility], call tomorrow morning to see if beds available. CM met with
patient bedside, updated that Gordon will call [facility] in a.m. to see if they have availability. Patient agreeable to [facility]. CM will continue to follow for discharge planning needs.
Plan; inpatient rehab, [facility] to call [facility] in a.m. to check availability.
[2023-07-30 13:01] VITALS: BP 124/87
[2023-07-30] MEDS: ZESTRIL 10 MG PO (13:02)
[2023-07-30 15:35] VITALS: BP 125/89
[2023-07-30] MEDS: ZOFRAN 4 MG IV (20:24)
[2023-07-31 00:03] VITALS: BP 112/73
[2023-07-31 06:02] LABS: Hematocrit 30.3 % (39.0-52.0); Hemoglobin 10.7 g/dL (13.0-18.0); Mean Corp Hgb Conc. 35.3 g/dL (33.0-37.0); Mean Corpuscular Hgb 34.2 pg (27.0-31.0); Mean Corpuscular Volume 96.8 fL (80.0-94.0); Mean Platelet Volume 8.8 fL (7.4-10.4); Platelet Count 217 10^3/uL (130-400); Red Blood Cell Count 3.13 10^6/uL (4.70-6.10); Red Cell Dist. Width 12.4 % (11.5-14.5); White Blood Cell Count 3.4 10^3/uL (4.8-10.8)
[2023-07-31 06:32] LABS: Blood Urea Nitrogen 7 mg/dl (9-20); Calcium 8.5 mg/dl (8.4-10.2); Carbon Dioxide 28 mmol/L (22-30); Chloride 105 mmol/L (98-107); Estimated Creatinine Clearance 72 ml/min; Glucose 101 mg/dl (70-99); Magnesium 1.6 mg/dl (1.6-2.3); Potassium 4.4 mmol/L (3.5-5.1); Sodium 136 mmol/L (135-145); eGFR > 60.00
[2023-07-31 07:30] VITALS: BP 120/75
[2023-07-31] MEDS: HEPARIN 5000 UNITS SC (09:16)
[2023-07-31] MEDS: VITAMIN B1 100 MG PO (09:16)
[2023-07-31] MEDS: FOLVITE 1 MG PO (09:16)
--- NOTE | 2023-07-31 09:16 | W.PN.HOSP.TC ---
Today's Communication/Plan
-
Continue current management. Discharge planning today.
Assessment / Plan
Assessment / Plan
Physical exam:
General: No acute distress
HEENT: Normocephalic, Atraumatic and Moist Mucous Membranes
Respiratory: Clear to Auscultation; Negative Wheezes, Rales or Rhonchi
Cardiac: Regular Rhythm and S1/S2
GI: Soft, Nontender and Nondistended
Musculoskeletal: No Clubbing, No Cyanosis and No Edema
Neuro: Awake, Alert and Oriented
Psych: Calm
A/P:
Acute presentation of hypotension
-Responded to IV fluids in the ED
-Will resume ZIGGY inhibitor with holding parameters
-Stop IV fluids
Presumed acute pancreatitis
-Binge drinker in the setting of alcohol use disorder
-CT of the abdomen unremarkable for acute pancreatitis however lipase 2845>> 2700>>658
-Keep n.p.o.>> clear liqui>> full liquids-->1200 demetrio diet yesterday
-[facility] had bed assignment and a alcohol rehab facility and reports yesterday.
Alcoholic hepatitis with LFT elevation
-Analgesia with hydromorphone/avoid morphine in setting of MEAGAN
-MSAS protocol/if history is accurate should not have significant withdrawal presentation given last drink
-Follow on telemetry
Refeeding syndrome
-Magnesium potassium and phosphorus all depressed/continue need for replacement as repeat magnesium with IV and oral, this morning is 1.6
-Serum calcium 6.8 but ionized calcium is 7.84 prior.
-Phosphorus improving to 3.4 will continue Neutra-Phos until tomorrow
-Continue to monitor
Hyponatremia
Mild and continue to monitor
Acute kidney injury/resolved
-Presumed in relation to low volume state
- Stop IV fluids
-Bicarb infusion can be discontinued
-Resume lisinopril
Inappropriate prednisone use
-Uses as needed not prescribed by physician gets from friends
-Admits to as much is taking 40 mg sometimes daily sometimes will take lower dosages last intake was over 2 weeks ago however
-Avascular necrosis of left hip femoral head was noted incidentally on abdominal and pelvic CT imaging/admits to no pain in the left hip although he has pain in other locations
-Advised that the his indiscriminate prednisone usage could have led to the avascular necrosis explained the concept of that diagnosis and should he develop any left hip pain or gait instability to seek attention with an orthopedist
Acute troponin elevation
-Presumed to be nonischemic origin
Lactic acidosis/resolved
-Stop IV fluids
DVT prophylaxis with heparin and SCDs
Full CODE STATUS
Anticipated Discharge: Today
Subjective/Interval History
-
Date of Service: July 31, 2023
No new complaints.
Objective Data
-
Labs:
Laboratory Results
07/31/23
05:52
WBC 3.4 L
Hgb 10.7 L
Hct 30.3 L
Plt Count 217 D
Sodium 136
Potassium 4.4
Chloride 105
Carbon Dioxide 28
BUN 7 L
Creatinine 1.2
Glucose 101 H
Calcium 8.5
Vital Signs:
Vital Signs
Temp Pulse Resp BP Pulse Ox
98.9 F 101 18 120/75 100
07/31/23 07:30 07/31/23 07:30 07/31/23 07:30 07/31/23 07:30 07/31/23 09:04
I&O
07/30/23 07/31/23 08/01/23
06:59 06:59 06:59
Intake Total 480 / 480 720 / 720
Output Total 1800 / 1800
Balance -1320 / -1320 720 / 720
[2023-07-31] MEDS: ZESTRIL 10 MG PO (09:17)
[2023-07-31] MEDS: PROTONIX IV 40 MG IV (09:17)
[2023-07-31] MEDS: FLUSH (NSS) 1 FLUSH IV (09:17)
[2023-07-31] MEDS: NSS (PRESERVATIVE FREE) 10 ML IV (09:17)
[2023-07-31] MEDS: MAGNESIUM OXIDE 500 MG PO (09:17)
--- NOTE | 2023-07-31 10:25 | W.DCSUMMARY ---
Discharge Summary
Discharge Data
Date of Admission: 07/23/23
Date of Discharge: 07/31/23
-
Pending Results: No
Hospital Course
Patient is 63 years old male with history of GERD, renal failure, presented to the hospital found him on the floor and also some alcohol use disorder. There is some concern about alcohol acute pancreatitis and acute kidney injury and nonischemic
elevated troponin and lactic acidosis. He was given IV fluids and supportive care. Patient was placed on alcohol withdrawal protocol as well. His numbers improved, including creatinine from 2 down to 1.2, LFT trending down, lipase from 2845 down
to 658. Patient symptomatically improved. Patient eager to participate to alcohol and drug rehab. There were some concerns of refeeding syndrome so electrolytes were replaced aggressively. His electrolytes have improved. He is currently
discharged in stable condition today.
Discharge duration: 35 minutes
Discharge Plan
-
Patient Disposition: Longterm/SNF
Discharge Diagnosis/Procedures: Alcohol induced pancreatitis. Alcohol withdrawal. Alcohol use disorder. Elevated liver function tests. Acute kidney injury. Elevated troponin due to non-ischemic myocardial injury. Concerns for avascular
necrosis left hip. Refeeding syndrome.
Diet: Low Cholesterol
Activity: As tolerated
Blood Work: PCP to order CBC, CP within 1 week
Specialty Instructions: Weigh Daily- Call MD for wt gain/loss 3 lbs overnight/5 lbs in 1 week
Referrals:
Jose Antonio Ann DO [Family Provider] - in less than 1 week
Jason Rothman MD [Active] - in two to four weeks (Possible avascular necrosis findings left hip)
Prescriptions:
New
thiamine HCl (vitamin B1) 100 mg Tablet
100 mg PO BID Qty: 10 0RF
magnesium oxide 500 mg magnesium Tablet
500 mg PO BID Qty: 10 0RF
Continued
lisinopril 10 mg Tablet
10 mg PO DAILY
tizanidine 4 mg Capsule
4 mg PO Q8H PRN (Reason: muscle spasms)
omeprazole 40 mg capsule,delayed release(DR/EC)
40 mg PO DAILY
Discharge Orders:
Discharge Patient (As Directed); Ordered 07/31/23
Ordered By: Lauro Santos
Discharge Date and Time
Discharge Date/Time: 07/31/23 11:30
Print Language: ALBANIAN
[2023-07-31 11:10] VITALS: BP 132/93
--- NOTE | 2023-07-31 11:24 | CM ---
EMILIE spoke with Layne from [facility] [phone], [facility] can accept patient today. Per Hospitalist, patient clear for discharge. [facility] to provide transportation for 11:30 a.m. CM will continue to follow for discharge planning needs.
Plan; [facility], 11:30 a.m. transport.
== END 2023-07-31 11:30 | DRG 314 ==
LOC: 4 EAST ACU 19:43
PROVIDERS: Physician Assistant; Registered Nurse; ADMITTING PHYSICIAN Internal Medicine; ATTENDING PHYSICIAN Hospitalist; EMERGENCY PHYSICIAN Emergency Medicine; FAMILY PHYSICIAN Family Medicine
DX: I95.9 Hypotension, unspecified (principal); K85.90 Acute pancreatitis without necrosis or infection, unspecified; E87.1 Hypo-osmolality and hyponatremia; E87.20 Acidosis, unspecified; F10.139 Alcohol abuse with withdrawal, unspecified; N17.9 Acute kidney failure, unspecified; I5A Non-ischemic myocardial injury (non-traumatic); F17.210 Nicotine dependence, cigarettes, uncomplicated; K70.10 Alcoholic hepatitis without ascites; E87.6 Hypokalemia; Z11.52 Encounter for screening for COVID-19
CPT/HCPCS: 74176; 80048; 80053; 80306; 81003; 81015; 82010; 82077; 82550; 82977; 83605; 83690; 83735; 84100; 84484; 85025; 85027; 85610; 86803; 86850; 86900; 86901; 87040; 87086; 87811; 93005; 96361; 96365; 96366; 96375; 99285; 99406